=== PATIENT | male | born 1955 | race Caucasian/White ===

== ENCOUNTER 2016-12-08 08:40 | Inpatient (IN) ==
[2016-12-08] MEDS ORDERED: NS 1,000 ML IV ONE (08:53)
[2016-12-08] MEDS ORDERED: ZOFRAN IV ONE (08:53)
[2016-12-08 09:06] LABS: MANUAL DIFF NEEDED? NO
[2016-12-08 09:16] LABS: BASO% 0.5 % (0.0-0.8); EOS# 0.19 X1000 (0.0-0.7); EOS% 1.7 % (0.0-10.0); HEMATOCRIT 26.9 % (42.0-52.0); HEMOGLOBIN 8.6 g/dL (14.0-18.0); LYMPH# 2.63 X1000 (1.2-3.4); LYMPH% 23.8 % (20.5-51.1); MCH 27.2 PG (27-31); MCV 85.1 FL (81-99); MONO# 0.97 X1000 (0.11-0.59); MONO% 8.8 % (1.7-9.3); MPV 10.5 FL (7.4-10.4); NEUT% 65.2 % (42.2-75.2); PLT 268 X1000 (130-400); RBC 3.16 XMIL (4.7-6.1)
[2016-12-08] MEDS ORDERED: PROTONIX 80 MG in NS 80 ML IV ONE (09:42)
--- NOTE | 2016-12-08 09:44 | PROVIDER DOCUMENTATION ---
This chart was entered by Samir Abreu Scribe, acting as scribe for Vlad Joseph MD. HPI-Abdominal Pain/GI Problem - General Chief Complaint: Vomiting Blood Stated Complaint: VOMITING BLOOD Time Seen by Provider: 12/08/16 08:53 Source: patient, EMS Allergies/Adverse Reactions: Patient Allergies Allergy/AdvReac Type Severity Reaction Status Date / Time wheat Allergy Unknown Verified 12/08/16 09:01 Home Medications: Home Medication List Medication Instructions Recorded Confirmed Last Taken Type Colchicine 0.6 mg PO PRN PRN 03/08/13 12/08/16 03/06/13 History Metoprolol Succinate E.r. [Toprol 50 mg PO DAILY 03/08/13 12/08/16 12/07/16 History Xl] Nitroglycerin [Nitrostat] 0.4 mg SL DIRECTED PRN 03/08/13 12/08/16 03/08/13 00:30 History Aspirin 81 mg PO DAILY 04/16/13 12/08/16 12/07/16 08:00 History Cholecalciferol (Vitamin D3) 1,000 unit PO DAILY 10/27/16 12/08/16 12/07/16 History [D-2000] Febuxostat [Uloric] 80 mg PO DAILY 10/27/16 12/08/16 12/07/16 History [place]-3 Fatty Acids/Fish Oil [Fish 1 cap PO DAILY 10/27/16 12/08/16 12/07/16 History Oil 1,000 mg Capsule] Isosorbide Mononitrate [Isosorbide 60 mg PO DAILY 11/18/16 12/08/16 12/07/16 History Mononitrate ER] Ticagrelor [Brilinta] 90 mg PO BID 12/08/16 12/08/16 12/07/16 18:30 History - History of Present Illness-ABD Nature of Presenting Problems: Patient is a 61 y/o M that presents to the Er after vomiting blood this am. Patient denies any abdominal pain or diarrhea. Patient is on Brilinta due to having cardiac stents. No dizziness, shortness of breath, or fever. Abdominal Pain Onset Location: reports: generalized abdomen Quality of Pain: reports: aching, cramping Severity in ED: reports: moderate Onset/Duration: reports: abrupt, this morning Timing: reports: improving Activities at Onset: reports: none Modifying Factors: improves with: nothing Associated Symptoms: reports: nausea, vomiting. denies: back/neck pain, chest pain, diarrhea, dizziness, fever/chills, genitourinary problems, muscle aches, shortness of breath, weakness Emesis Description: reports: red blood Similar Symptoms Previously?: No Recently seen or treated by another doctor?: No Review of Systems - Adult - REVIEW OF SYSTEMS - ADULT Constitutional: denies: fever Eyes: reports: no symptoms reported Ears, Nose, Mouth & Throat: reports: no symptoms reported Cardiovascular: denies: chest pain, orthopnea, palpitations, syncope Respiratory: denies: cough, shortness of breath, wheezing Gastrointestinal: reports: hematemesis, nausea, vomiting. denies: diarrhea, rectal bleeding Genitourinary: denies: discharge, frequency, hematuria Musculoskeletal: reports: no symptoms reported Integumentary: reports: no symptoms reported Neurological: reports: no symptoms reported Psychiatric: reports: no symptoms reported Endocrine: reports: no symptoms reported Hematologic/Lymphatic: reports: no symptoms reported Allergic/Immunologic: reports: no symptoms reported All Other Systems: Reviewed and Negative Past History - Adult - PAST MEDICAL HISTORY-ADULT Review of Records: reports: Old Records Reviewed, Nursing Assessment Review, Medications Reviewed Cardiovascular: reports: CAD, HTN Genitourinary: reports: other (Renal Damage) - PRIOR SURGERIES/PROCEDURES Surgical/Procedure History: reports: cardiac stent, other (lithotripsy) - IMMUNIZATION STATUS Childhood Immunizations: See Nurse Assessment Flu Vaccine: See Nurse Assessment - FAMILY HISTORY Family History: reviewed, not pertinent - SOCIAL HISTORY Smoking: non-smoker Alcohol Use Frequency: occasionally Living Situation: family Physical Exam-General - PHYSICAL EXAM-ADULT Initial Vital Signs Reviewed: Yes - CONSTITUTIONAL General Appearance: alert, no apparent distress, other (blood noted to facial hair) - EYES Eyes: PERRL/EOMI, pink conjunctivae - HEAD, EARS, NOSE, MOUTH & THROAT HENMT: normocephalic/atraumatic, moist mucous membranes, normal ENT inspection - NECK Neck: full range of motion, normal inspection - RESPIRATORY Respiratory: lungs clear, normal breath sounds, no respiratory distress, no accessory muscle use - CARDIOVASCULAR Cardiovascular: regular rate, rhythm, no edema, no murmur. 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, no motor/sensory deficits - PSYCHIATRIC Psych/Mental Status: normal mood/affect, normal thought content, normal thought process, oriented x 3 Progress - PLAN OF CARE/RESULTS Progress/Plan/Lab Results: Vital Signs - 8 hr 12/08/16 08:59 Temperature 98 F Pulse Rate 63 Respiratory Rate 11 L Blood Pressure 93/52 O2 Sat by Pulse Oximetry 99 Orders Category Date Time Status Saline Loc DIRECTED Care 12/08/16 08:54 Active NPO Diet 12/08/16 08:54 Active AMYLASE [CHEM] Stat Lab 12/08/16 08:54 Received CBC WITH ELECTRONIC DIFF [HEME] Stat Lab 12/08/16 08:54 Results COMPREHENSIVE METABOLIC PANEL [CHEM] Stat Lab 12/08/16 08:54 Received LIPASE [CHEM] Stat Lab 12/08/16 08:54 Received Stool [OCCULT BLOOD SCREENING] [STOOL] Stat Lab 12/08/16 08:54 Uncollected URINALYSIS W/POSS RFLX CULT-1 [URINALYSIS] Stat Lab 12/08/16 08:54 Uncollected 0.9% Sodium Chloride Inj [Ns] 1,000 ml Med 12/08/16 08:53 Active IV 999 mls/hr Ondansetron [Zofran] Med 12/08/16 08:53 Discontinued 4 mg IV NOW ONE Result Diagrams: 12/08/16 08:54 12/08/16 08:54 - EKG 1 Time of EKG reading by physician:: 10:52 EKG Read and Signed by:: Vlad Joseph EKG Interpretation (*Must complete 3 of following elements*): Abnormal Rate: 56 Rhythm: Sinus Bradycardia [place]: left AK Interval: normal ST Wave: non-specific ST changes - CONSULTS/PCP/HOSPITALIST Notification #1 *Consult/PCP/Hospitalist*: nutrition representative for GI Time Discussed: 09:48 Reason/Comments: will consult, protonix drip Consult Disposition: other #2 Consult: Darrian ( with hospitalist) Time Discussed: 09:54 Reason/Comments: accepted patient Consult Disposition: Admit Departure - Departure Date of Disposition Decision: 12/08/16 Time of Disposition Decision: 09:54 DIAGNOSIS: Vomiting blood Disposition: ADMITTED INPATIENT 09 Certified Medical Emergency: Emergent Condition: Stable - Critical Care Note This patient required my direct & personal management of CC.: Yes Total Time (mins): 35 Critical Care Statement: This patient required my direct personal management to treat or rule out processes, the absence of which, could potentiallly result in sudden, clinically significant life or limb threatening deterioration. This chart was documented by the indicated scribe, (Samir Abreu, Scribe) and accurately reflects the services I performed and decisions made by me, Vlad Joseph MD, as attested by the provider's signature.
[2016-12-08] MEDS ORDERED: PROTONIX 80 MG in NS 80 ML IV SCH (09:45)
[2016-12-08 09:46] LABS: ALBUMIN 3.3 g/dL (3.5-5.0); CALCIUM 8.9 mg/dL (8.8-10.2); TOTAL BILIRUBIN 0.45 mg/dL (0.20-1.00); TOTAL PROTEIN 6.2 g/dL (6.3-8.3)
[2016-12-08 10:23] LABS: RETIC% 1.61 % (0.8-2.1); RETIC-HE 24.5 PG (28.2-36.6)
[2016-12-08] MEDS ORDERED: ZOFRAN IV PRN (10:31)
[2016-12-08 10:40] LABS: INR 1.02; PROTIME 10.7 Seconds (9.2-11.7)
--- NOTE | 2016-12-08 10:51 | Diag Imaging Result Doc PS360 ---
CHEST-1 VIEW - 12/08/2016 INDICATION: hematemesis TECHNIQUE: COMPARISON: 04/16/2013 FINDINGS: The lungs are normally expanded and clear. Heart size and mediastinal contours are normal. No pneumothorax or pleural effusion. IMPRESSION: Negative exam. Electronically signed by Kiko Gaytan 12/08/2016 10:48 AM
[2016-12-08 11:03] LABS: IRON SATURATION 11 %; TIBC 285 ug/dL; TOTAL IRON 31 ug/dL (53-167); UNBOUND IRON 254 ug/dL (112-346)
--- NOTE | 2016-12-08 11:28 | Diag Imaging Result Doc PS360 ---
ABDOMEN FLAT/UPRIGHT - 12/08/2016 INDICATION: hematemesis TECHNIQUE: Two views COMPARISON: None FINDINGS: There is a nonobstructive bowel gas pattern. No free air or abnormal calcifications. IMPRESSION: No acute disease. Electronically signed by Kiko Gaytan 12/08/2016 11:25 AM
[2016-12-08] MEDS: NS 1,000 ML IV SCH ×2 (12:05→23:39)
[2016-12-08 12:21] LABS: URINE CULTURE NEEDED? NO; URINE MICRO REVIEW NEEDED? NO; URINE SOURCE CLEAN CATCH
[2016-12-08 12:45] LABS: BILIRUBIN URINE NEGATIVE (NEGATIVE); BLOOD URINE NEGATIVE (NEGATIVE); COLOR YELLOW; GLUCOSE URINE NEGATIVE (NEGATIVE); LEUKOCYTES URINE NEGATIVE (NEGATIVE); NITRITE URINE NEGATIVE (NEGATIVE); PH URINE 5.5; PROTEIN URINE 30 mg/dL (NEGATIVE); SP GRAVITY URINE 1.012; TURBIDITY URINE CLEAR (CLEAR); UROBILINOGEN URINE NORMAL (NORMAL)
--- NOTE | 2016-12-08 12:46 | HISTORY AND PHYSICAL ---
CHIEF COMPLAINT: Hematemesis. HISTORY OF PRESENT ILLNESS: Mr. Zuluaga is a 61-year-old male with a history of coronary artery disease status post myocardial infarction and coronary stenting in August of this year, requiring dual anti-platelet therapy, CKD stage 3 to 4, hypertension, and hyperlipidemia, who presents with acute onset of hematemesis that started this morning. The patient reports that 2 or 3 days ago, he started having some left upper quadrant discomfort, nothing really serious, maybe some cramping with movement, and this eventually subsided. This morning, he started having nausea and threw up copious amounts of bright red blood. He sat back down on his bed, became a little more dizzy, and threw up blood again. He came to the hospital for evaluation. He was noted to have a hemoglobin and hematocrit of 8.6 and 26.9. His creatinine was 2.6. He denies any chest pain or shortness of breath. No recent lower extremity edema or orthopnea. He takes duel antiplatelet therapy every day, but he denies any other NSAID use. He denies alcohol or tobacco use. He is currently receiving Protonix bolus and drip. He has been typed and crossed, and we are going to admit him for further treatment and evaluation. PAST MEDICAL HISTORY: 1. CAD, status post TN and stenting in August 2016. 2. 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 Mena in [place]. 3. Hypertension. 4. Hyperlipidemia. 5. Gout. PAST SURGICAL HISTORY: He has had coronary stenting and lithotripsy. SOCIAL HISTORY: Patient quit smoking 36 years ago. He does not drink, use illicit substances, or use tobacco products. His and daughter are at the bedside. FAMILY HISTORY: Mother from a stroke. Father still alive at 95 years old, without any medical problems. REVIEW OF SYSTEMS: Fourteen-point review of systems obtained and found to be negative with the exception of the HPI. ALLERGIES: Wheat. HOME MEDICATIONS: Aspirin 81 mg daily. Brilinta 90 mg b.i.d. Vitamin D3, 1000 units p.o. daily. Colchicine 0.6 mg as needed. Uloric 80 mg daily. Isosorbide mononitrate 60 mg daily. Toprol-XL 50 mg daily. Nitrostat 0.4 mg sublingual as needed for chest pain. Fish oil 1 daily. PHYSICAL EXAMINATION: VITAL SIGNS: Blood pressure is 126/56, heart rate 58, respiratory rate 21, O2 saturation 100% on room air, and temperature is 98 degrees. GENERAL: This is a well-developed, well-nourished, male, lying in hospital bed in no acute distress. NEUROLOGIC: He is awake, alert, and oriented. He follows commands without focal deficits. HEENT: Head is atraumatic and normocephalic. His pupils are equal, round, and reactive to light. Conjunctivae and oral mucosa are pale and dry. Oropharynx is clear. Trachea is midline. NECK: Supple. No JVD. CHEST: Clear to auscultation bilaterally. CARDIOVASCULAR: Regular rate and rhythm. S1 and S2 noted. GASTROINTESTINAL: Soft, nondistended, nontender. Bowel sounds are positive. EXTREMITIES: Without edema, clubbing, or cyanosis. Pulses are palpable bilaterally. DIAGNOSTIC DATA: Chest x-ray is negative. WBC 11.05, hemoglobin 8.6, hematocrit 26.9, platelet count 268,000. INR 1.02. Sodium 142, potassium 5, chloride 108, CO2 of 16, anion gap 18, BUN 23, creatinine 2.6, glucose 197, calcium 8.9. LFTs within normal limits. Albumin 3.3. Lipase 57. ASSESSMENT AND PLAN: 1. Acute upper gastrointestinal bleed: Highest on the differential would be bleeding peptic or duodenal ulcer. The patient has been put on Protonix drip and IV fluids. Dr. Ashby has already been consulted with Gastroenterology. We are also going to consult Cardiology. Given the recent coronary stent and the fact that he is on dual anti-platelet therapy, will need some recommendations on if and when he can discontinue his antiplatelets. 2. Acute blood loss anemia secondary to #1: We have ordered iron studies, and will type and cross the patient, and transfuse if necessary. 3. History of recent myocardial infarction with coronary artery stenting: The patient denies any chest pain or shortness of breath. We are going to check an EKG and get records from [facility], where he has his stent, and consult Cardiology. We will hold his medications for now and defer this to Cardiology and Gastroenterology. 4. Chronic kidney disease stage 3 to 4: Creatinine is overall stable. He is a bit acidotic with hyperchloremia and a mildly elevated anion gap. This appears to be secondary to volume contraction and renal failure. We will monitor closely. 5. Hyperglycemia: Check a hemoglobin A1c and treat accordingly. 6. Deep vein thrombosis prophylaxis with SCDs and TEDs, given his gastrointestinal bleeding. Further recommendations to follow. Dictated by LEONA Walter for Gay Drummond MD cc: LEONA Walter MD The patient was seen and examined by me. I agree with the assessment and plan as dictated. [facility]
[2016-12-08 13:01] LABS: UR EPITHELIAL CELLS <10 /HPF (<10); URINE BACTERIA NEGATIVE /HPF; URINE RBC <10 /HPF (<10); URINE WBC <10 /HPF (<10)
--- NOTE | 2016-12-08 13:03 | EKG Report ---
Test Performed on : 12/08/2016 10:52:31 AM Test Reason : hematemesis, recent stent Blood Pressure : / mmHG Vent. Rate : 056 BPM Atrial Rate : 056 BPM P-R Int : 144 ms QRS Dur : 082 ms QT Int : 466 ms P-R-T Axes : 080 -30 092 degrees QTc Int : 449 ms Sinus bradycardia. Left axis deviation Septal infarct (cited on or before 08-MAR-2013) T wave abnormality, consider anterolateral ischemia Abnormal ECG When compared with ECG of 16-APR-2013 20:52, Questionable change in initial forces of Septal leads T wave inversion no longer evident in Lateral leads Confirmed by Billy BENOIT, MAdore Guardado ([id number]) on 12/21/2016 1:39:28 PM
[2016-12-08 13:34] LABS: HEMOGLOBIN 8.3 g/dL (14.0-18.0)
--- NOTE | 2016-12-08 14:09 | CONSULTATION ---
DATE OF CONSULTATION: 12/08/2016 REASON FOR REFERRAL: Hematemesis. HISTORY OF PRESENT ILLNESS: This is a 61-year-old white male with a history of coronary artery disease status post myocardial infarction. He had a coronary artery stent placed in August of this year. He has been on Brilinta since then. The patient also reports having an MO in 2012 with a stent placement. At the time in 2012 he was on Effient. He was changed to Brilinta in August. He also reports kidney disease stage 3, followed by Dr. Mena in [place]. The patient reports onset of symptoms at 8 o'clock this morning. He had an episode of nausea with bright red blood per emesis. He had 3 other episodes prior to coming to the hospital. Since he has been admitted he has not had any further hematemesis. He reports 2 days ago he had some left- sided abdominal pain. No reported problems with reflux or heartburn. He does not take any medicine at home for reflux or heartburn. He did report noticing a black stool about a month ago. He reports occasional diarrhea when he takes gout medicines. Currently denies chest pain or shortness of breath. No reported ibuprofen or other NSAID use. He does take aspirin daily along with Brilinta. PAST MEDICAL HISTORY: 1. Coronary artery disease. 2. History of myocardial infarction. 3. History of recent stent placement in August. 4. Chronic kidney disease, followed by Dr. Mena in [place]. 5. Hypertension. 6. Hyperlipidemia. 7. Gout. 8. History of asthma. PAST SURGICAL HISTORY: Cardiac stent placement in August of 2016, cardiac stent placement in 2012, history of lithotripsy. ALLERGIES: Wheat, causing asthma. HOME MEDICATIONS: Brilinta 90 mg twice daily, fish oil 1 capful daily, Nitrostat 0.4 mg sublingual as needed, metoprolol 50 mg daily, isosorbide mononitrate 60 mg daily , Uloric 80 mg daily, colchicine 0.6 mg as needed, vitamin D 1000 units daily, aspirin 81 mg daily. SOCIAL HISTORY: He denies tobacco or alcohol use. He is and has 3 children. He is currently between jobs. 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 REVIEW OF SYSTEMS: HEENT: Noted some dizziness this morning with episodes of hematemesis. Cardiovascular: No reported chest pain. He has a history of cardiovascular disease, history of myocardial infarction, and stent placement in August. Pulmonary: No reported shortness of breath or cough. GI: Per HPI. : Reports history of chronic kidney disease, followed by Dr. Mena in [place]. Neurological: No history of stroke or seizures. PHYSICAL EXAMINATION: Vital Signs: Temperature 98.2 degrees, pulse 59, respirations 15, blood pressure 144/73. General: Patient is awake, alert, in no acute distress. HEENT: Normocephalic, atraumatic. Pupils equal, round, reactive to light. Conjunctivae pale. Skin : Pale. Respiratory: Lung sounds clear bilaterally. Cardiovascular: Regular rate and rhythm. Gastrointestinal: Abdomen is soft, nontender. Positive bowel sounds. Extremities: No lower extremity edema noted. Pedal pulses present bilaterally. DIAGNOSTIC RESULTS/LABORATORY: Hematology: White count 11.05, hemoglobin 8.6, hematocrit 26.9, MCV 85.1, platelets 268,000. Coagulation: Protime 10.7, INR 1.02. Chemistry: Sodium 142, potassium 5.0, chloride 108, CO2 16, BUN 53, creatinine 2.6, glucose 197, calcium 8.9, magnesium 1.7, iron 31, TIBC 285, percent saturation 11, ferritin 75, total bilirubin 0.45 , AST 17, ALT 15, alkaline phosphatase 88, amylase 63, lipase 57. Vitamin B12 254, folate 10.6. Abdominal x-ray showed no acute disease. ASSESSMENT: 1. Hematemesis. 2. Anemia. 3. History of recent myocardial infarction with coronary artery stenting in August of 2016. 4. Chronic anticoagulation therapy. 5. Chronic kidney disease. PLAN: Continue supportive care. Continue to monitor hemoglobin and hematocrit and monitor for active bleeding. Transfuse packed red blood cells if needed. He is unable to come off of [facility] due to his recent cardiovascular stent placement in August. Will proceed with a diagnostic EGD. Further plans to be made according to findings. I have discussed the procedure, along with benefits and risks with the patient and his family and they wish to proceed. I have discussed this case with Dr. Izquierdo. Further plans will be made by him according to EGD findings. Thank you for this consultation. Dictated by LEONA Lua for Rosalio Izquierdo MD cc: LEONA Ferreira MD [facility]
[2016-12-08] MEDS ORDERED: NS 500 ML ONE (14:53)
[2016-12-08] MEDS ORDERED: DIPRIVAN 1% ONE (15:27)
[2016-12-08] MEDS ORDERED: COLCRYS PO PRN (15:49)
--- NOTE | 2016-12-08 16:24 | OPERATIVE NOTE ---
PROCEDURE DATE: 12/08/2016 PROCEDURE: EGD. PREOPERATIVE DIAGNOSES: 1. Acute upper gastrointestinal bleed. 2. Anemia secondary to upper gastrointestinal bleed. POSTOPERATIVE DIAGNOSES: 1. Severe esophagitis distal esophagus. 2. Hiatal hernia. MEDICATION USED: MAC as per Anesthesia. SCOPE: Olymp[employer] GIF HQ-[id number]. HISTORY: This is a 61-year-old gentleman presented to the hospital with acute upper GI bleed and when he presented he was unstable. His systolic blood pressure was 90 only. Was stabilized and is in process of receiving blood. EGD was done for only diagnostic purposes and check if he needs any therapeutic measures required or not and also that will give us an idea about his future use of Brilinta or whether we can use that safely or not. DESCRIPTION OF PROCEDURE: Informed consent obtained from the patient. The procedure, risks, benefits, alternatives were explained in layman's terms. He understood. All his pertinent questions were answered. Patient was brought to the endoscopy unit and was premedicated as per Anesthesia. After adequate sedation, while he was lying in left lateral position the gastroscope was introduced into the posterior pharynx and advanced under direct vision into the esophagus. Esophagus in the upper and middle part was normal. Distal esophagus right at the GE junction which was noted about 38 cm from the incisor. Esophageal ulcers were seen. These ulcers had some dark spots adherent to it but no evidence of active bleeding or stigmata of recent bleed seen. The patient had evidence of LA grade D esophagitis. No varices noted. There was a 2 cm hiatal hernia noted at about 38 cm. The diaphragmatic hiatus was noted at about 40 cm from the incisor. Scope passed through the esophagus in the stomach and the stomach was examined both straight and retroflexed view which revealed no evidence of active bleeding, no stigmata recent bleed, no ulcer, AVM or masses were seen. Scope was passed through the normal pylorus into the duodenal bulb and then 2nd part duodenum both appeared to be normal. Scope was then withdrawn, patient tolerated procedure, no complications noted. Patient was then transferred to the recovery area in a stable condition. IMPRESSION: 1. Severe esophagitis LA grade D. 2. Hiatal hernia. RECOMMENDATION: I would continue on proton pump inhibitor. Resume his aspirin and in 24-48 hours we can restart him on Brilinta again. I would recommend to keep him on IV Protonix for today and resume his Protonix p.o. 40 mg p.o. b.i.d. tomorrow. Start him on full liquid diet and advance as tolerated, in the meantime check hemoglobin and hematocrit after transfusions done and en keep an eye on his hemoglobin and hematocrit transfuse if necessary. Note Dr. Ashby will be following the patient for me as I will not be available starting [facility]. cc: Rosalio Izquierdo MD
[2016-12-08] MEDS: PROTONIX 80 MG in NS 80 ML IV SCH (18:29)
--- NOTE | 2016-12-08 19:27 | CONSULTATION ---
DATE OF CONSULTATION: 12/08/2016 IMPRESSION: 1. Acute upper GI bleeding related to severe erosive esophagitis. 2. Atherosclerotic coronary disease. A) status post previous coronary angioplasty/stenting of mid left anterior descending coronary. B) acute anterior myocardial infarction on 09/03/2016 treated with emergent coronary angioplasty/ stenting of occluded mid left anterior descending coronary artery in proximal portion of previously placed stent. A drug-eluting stent was placed. This was performed by at [facility] in [place], [place]. Left ventricular ejection fraction reported to be 25%. Highest CPK measured after event was about 2800. Patient had pre-existing chronic kidney disease and developed transient acute renal failure following the procedure which then recovered. 3. Hypertension, longstanding. 4. Chronic kidney disease. 5. Gout. 6. Medical noncompliance in the past. Specifically, prior to his recent anterior myocardial infarction he had stopped taking aspirin and antihypertensive medications. 7. Some degree of hyperlipidemia. Patient has been intolerant of several statins as he relates they aggravate his gout. RECOMMENDATIONS: 1. Continue beta-tia metoprolol. Consideration might be given to switching to carvedilol but for now I would not make any changes. 2. Resume antiplatelet therapy as soon as possible given drug-eluting stent placed to the mid left anterior descending coronary within the last several months. Dr. Izquierdo's operative report and recommendations are noted. Aspirin has been resumed and Brilinta to be resumed in 24 hours. 3. Echocardiography to reassess left ventricular systolic function. 4. The patient is also noted to have 80-90% mid to distal right coronary artery stenosis during his procedure in August of this year. For now we will continue to manage this medically but consideration may be given to percutaneous intervention particularly if perfusion study demonstrates hemodynamic significance/flow limitation. HISTORY: This 61-year-old, white male with a past history of atherosclerotic coronary disease, previous angioplasty/stent to mid left anterior descending coronary in the past, recent anterior myocardial infarction in early August of this year treated with emergent angioplasty/stent to mid left anterior descending coronary with drug-eluting stent, ischemic cardiomyopathy, hypertension, chronic kidney disease with baseline creatinine around 2.7, tophaceous gout, and medical noncompliance was admitted today with acute upper GI bleeding. Cardiology was consulted to assist with his care. He had acute chest pain back on 09/03/2016 while in [place], [place]. He characterizes the discomfort as angina. He promptly went to the emergency room in [place], [place] at [facility]. He got there within an hour and was found to have acute anterior myocardial infarction. Emergency coronary angioplasty/stenting was performed on occluded mid left anterior descending coronary in the proximal portion of the previously placed stent. A drug-eluting stent was utilized. This was performed by . Patient's ejection fraction was estimated to be 25%. CPK yovanny to about 2800. However, a peak CPK was not reliably determined as only 2 CPK values were obtained. The patient's postoperative post-procedure course was complicated by acute renal failure which ultimately improved. He also had some transient atrial fibrillation and transient ventricular arrhythmias. The latter was only observed in the initial 48 hours. He was treated with amiodarone. He was also treated with hydralazine and isosorbide as well as metoprolol, aspirin and Brilinta. Crestor was also initiated. Since discharge he has not had any further chest discomfort. He has had no exertional dyspnea, no orthopnea. He did not continue amiodarone. He also felt like hydralazine aggravated his gout and made him feel bad, and he discontinued this. He also did not continue Crestor/rosuvastatin. It is noteworthy that prior to his recent anterior myocardial infarction he had discontinued his aspirin and antihypertensive medications. He has had no recurrence of cardiovascular symptoms. Last night he had some left upper abdominal discomfort that was vague. Today he started having queasiness and nausea followed by vomiting of dark bloody material. He was having obvious hematemesis and was brought to the hospital for evaluation. He has already had an upper GI endoscopy and transfusion. He has erosive esophagitis but no active bleeding was seen. His last dose of Brilinta was last night. Aspirin has already been resumed. PAST MEDICAL HISTORY: 1. Atherosclerotic coronary disease as outlined above. 2. Hypertension, longstanding. 3. Chronic kidney disease. 4. Tophaceous gout. 5. Medical noncompliance. 6. Gastroesophageal reflux by symptomatology in the past. 7. Hyperlipidemia. PAST SURGICAL HISTORY: Lithotripsy for nephrolithiasis. ALLERGIES: He is allergic or intolerant to wheat. MEDICATIONS PRIOR TO ADMISSION: As listed. SOCIAL HISTORY: Patient quit smoking over 30 years ago. He does not use alcohol. FAMILY HISTORY: Positive for coronary disease. REVIEW OF SYSTEMS: Pulmonary: Negative. Gastrointestinal: Noteworthy for gastroesophageal reflux and hematemesis as noted in history of present illness and past medical history. GI review of systems is otherwise negative. Constitutional: Negative. Remainder of review of systems: Negative/noncontributory with 14 total systems reviewed. PHYSICAL EXAMINATION: General: Reveals a middle-aged male in no distress. Vital Signs: As recorded are stable. HEENT Examination: Extraocular movements intact. Mucous membranes moist. Neck: Supple without jugular venous distention. There are no carotid bruits. Chest: Clear to auscultation. Cardiac Examination: Reveals a regular rate and rhythm without appreciable murmur or gallop. Abdomen: Soft and nontender. Extremities: Without edema. Neurologic Examination: Reveals him to be alert, fully oriented. Speech is fluent. He moves all 4 extremities equally well. Skin: Warm, dry. Psychiatric Examination: Reveals his mood to be appropriate. EKG: Demonstrates sinus bradycardia with left axis deviation, anteroseptal infarct of undetermined age and T-wave abnormality. Consider anterolateral ischemia. cc: Chucky Carroll MD
[2016-12-08 21:18] LABS: HEMATOCRIT 28.3 % (42.0-52.0); HEMOGLOBIN 9.3 g/dL (14.0-18.0)
[2016-12-09] MEDS: PROTONIX 80 MG in NS 80 ML IV SCH ×2 (03:28→14:40)
[2016-12-09 05:47] LABS: HEMATOCRIT 24.8 % (42.0-52.0); MCH 27.9 PG (27-31); MCHC 32.3 g/dL (33-37); MCV 86.4 FL (81-99); MPV 10.5 FL (7.4-10.4); RBC 2.87 XMIL (4.7-6.1)
[2016-12-09 06:16] LABS: CALCIUM 8.4 mg/dL (8.8-10.2); POTASSIUM 4.5 mmol/L (3.5-5.1)
[2016-12-09] MEDS: TOPROL XL PO SCH (08:31)
[2016-12-09] MEDS: ASPIRIN PO SCH (08:34)
[2016-12-09] MEDS: ULORIC PO SCH (08:34)
--- NOTE | 2016-12-09 13:25 | PROGRESS NOTE ---
DATE: 12/09/2016 SUBJECTIVE: The patient's heart rate has been running in the 40s. He denies having any abdominal pain. He has not had a bowel movement yet. OBJECTIVE: Vital Signs: Temperature 98.1 degrees, blood pressure 144/88, heart rate 48, respirations 16, and O2 saturation is 100% on room air. General: This is an this is a elderly male, lying in bed in no acute distress. Head: Normocephalic, atraumatic. Heart: S1 and S2 normal. Bradycardic. Lungs: Clear to auscultation bilaterally. Abdomen: Positive bowel sounds. Soft, nontender, nondistended. Extremities: No edema. No cyanosis. No calf tenderness. Neurologic: Patient is alert and oriented x3. LABORATORIES: White blood cell count 4.9, hemoglobin 8, hematocrit 24, and platelets 144,000. Sodium 143, potassium 4.5, chloride 113, CO2 of 19, BUN 46, creatinine 2.5, and glucose 88. ASSESSMENT AND PLAN: 1. Upper gastrointestinal bleed secondary to severe esophagitis. Continue on Protonix drip. Gastroenterology is following. 2. Coronary artery disease, status post recent stents. Management as per the cancer genetics assistant. 3. Anemia of acute blood loss. The patient's hemoglobin and hematocrit did drop overnight. The patient has not had a bowel movement yet. We will discontinue the IV fluids and repeat a hemoglobin and hematocrit later this afternoon. 4. Bradycardia. The patient is currently asymptomatic. Cardiology is following. 5. Deep vein thrombosis prophylaxis. Continue with SCDs. cc: Gay Drummond MD
--- NOTE | 2016-12-09 13:28 | PROGRESS NOTE ---
DATE: 12/09/2016 IMPRESSION: Patient continues without chest discomfort or dyspnea. He has not had any symptoms of further GI blood loss. OBJECTIVE: Vital Signs: Blood pressure 144/88, heart rate 50 and regular with ECG showing sinus bradycardia. Neck: There is no significant jugular venous distention. Chest: Clear to auscultation. Cardiac Exam: Reveals a regular rate and rhythm without appreciable murmur or gallop. There is no evidence of peripheral edema. LAB DATA: Includes hematocrit 24.8, BUN 46, creatinine 2.5. IMPRESSION: 1. Recent upper gastrointestinal bleed related to erosive esophagitis. 2. Atherosclerotic coronary disease. Patient is status post acute anterior myocardial infarction 09/03/2016 treated with emergent angioplasty/stenting of occluded mid left anterior descending utilizing drug-eluting stent. 3. Hypertension, longstanding. 4. Chronic kidney disease. 5. Medical noncompliance. 6. Tophaceous gout. 7. Hyperlipidemia. Patient relates intolerant to several statins which he relates aggravate his gout. RECOMMENDATIONS: 1. Continue aspirin 81 mg daily. 2. Resume Brilinta this evening as permitted by GI. 3. Followup echocardiography. cc: Chucky Carroll MD
[2016-12-09 14:28] LABS: HEMATOCRIT 27.4 % (42.0-52.0); HEMOGLOBIN 8.8 g/dL (14.0-18.0)
[2016-12-09] MEDS: BRILINTA PO SCH (21:25)
[2016-12-10] MEDS: PROTONIX 80 MG in NS 80 ML IV SCH (00:18)
[2016-12-10 06:32] LABS: MCH 27.9 PG (27-31); MCV 87.1 FL (81-99); MPV 10.4 FL (7.4-10.4); RBC 2.87 XMIL (4.7-6.1)
[2016-12-10 07:11] LABS: CALCIUM 8.4 mg/dL (8.8-10.2); POTASSIUM 4.9 mmol/L (3.5-5.1)
[2016-12-10] MEDS: TOPROL XL PO SCH (08:58)
[2016-12-10] MEDS: ULORIC PO SCH (08:58)
[2016-12-10] MEDS: ASPIRIN PO SCH (08:58)
[2016-12-10] MEDS: BRILINTA PO SCH (08:58)
[2016-12-10] MEDS: PROTONIX PO SCH ×2 (09:40→10:27)
[2016-12-10] MEDS: CARAFATE LIQUID PO SCH ×2 (10:28→11:55)
--- NOTE | 2016-12-10 13:21 | PROGRESS NOTE ---
DATE: 12/09/2016 SUBJECTIVE: Patient denies any active GI bleeding. He has not had a bowel movement yet since admission. His hemoglobin and hematocrit did drop overnight, awaiting repeat hemoglobin and hematocrit results. OBJECTIVE: Vital Signs: Temperature 98.1 degrees, pulse 48, respirations 16, blood pressure 144/88. General: Patient is awake, alert, no acute distress. HEENT: Normocephalic, atraumatic. Pupils equal, round, reactive to light. Sclerae nonicteric. Respiratory: Lung sounds clear. Abdomen: Soft. Positive bowel sounds. DIAGNOSTIC RESULTS/LABORATORY: On 12/09/2016 WBC 4.98, hemoglobin 8.8, hematocrit 27.4, MCV 86.4, platelet 144,000. Chemistry: Sodium 143, potassium 4.5, chloride 113, CO2 19, BUN 46, creatinine 2.5, glucose 88. ASSESSMENT: 1. Gastrointestinal bleed with EGD showing erosive esophagitis. 2. Atherosclerotic coronary disease with myocardial infarction in August of this year with stent placement. 3. Hypertension. 4. Bradycardia. PLAN: Continue to monitor hemoglobin and hematocrit. Monitor for any further active bleeding. Continue aspirin and his Brilinta will be started this evening. We will change PPI from IV to p.o. tomorrow. Will continue to follow. Dr. Ashby will be following for Dr. Izquierdo while he is out of town. Dictated by LEONA Lua for Rosalio Izquierdo MD cc: LEONA Ferreira MD
--- NOTE | 2016-12-10 14:01 | PROGRESS NOTE ---
DATE: 12/10/2016 SUBJECTIVE: Patient denies any significant complaints. He did have a bowel movement. He denied blood in the stool or black stools. He is tolerating his diet. No reported abdominal pain. No reported vomiting or hematemesis. OBJECTIVE: Vital Signs: Temperature 98.0 degrees, pulse 54, respirations 17, blood pressure 133/74. HEENT: Normocephalic, atraumatic. Pupils equal, round, reactive to light. Sclerae nonicteric. Cardiovascular: Regular rate and rhythm, bradycardia noted. Respiratory: Lung sounds clear bilaterally. Abdomen: Soft, nontender. Positive bowel sounds. DIAGNOSTIC RESULTS/LABORATORY: Hematology: White count 4.96, hemoglobin 8.0, hematocrit 25.0, MCV 87.1, platelet 155,000. Chemistry: Sodium 142, potassium 4.9, chloride 110 , CO2 21, BUN 40, creatinine 2.8, glucose 98. ASSESSMENT AND PLAN: 1. Gastrointestinal bleed. 2. Esophagogastroduodenoscopy findings showed severe esophagitis. 3. Anemia. His hemoglobin and hematocrit have dropped from yesterday. We will repeat a hemoglobin and hematocrit level at 2 p.m. today. 4. Coronary artery disease with history of stent placement in August. Following with Dr. Carroll while in the hospital. We will change PPI to p.o. b.i.d. We will add Carafate every 6 hours. Repeat hemoglobin and hematocrit at 2 p.m. Further plans will be made according to findings. I have discussed this case with Dr. Drummond. I have also discussed plans with Dr. Ashby, who will round on the patient this afternoon. She is covering for Dr. Izquierdo while he is out of town. Dictated by LEONA Lua for Rosalio Izquierdo MD cc: LEONA Ferreira MD [facility]
[2016-12-10 14:07] LABS: HEMATOCRIT 26.6 % (42.0-52.0); HEMOGLOBIN 8.7 g/dL (14.0-18.0)
[2016-12-10 14:41] VITALS: BP 179/96
--- NOTE | 2016-12-10 15:27 | PROGRESS NOTE ---
DATE: 12/10/2016 SUBJECTIVE: Patient continues without chest discomfort or dyspnea. He has had no symptoms of further GI blood loss. OBJECTIVE: Vital signs: Blood pressure 133/74, heart rate 54 and regular, oxygen saturation 100% on room air. Cardiac exam: Reveals a regular rate and rhythm without appreciable murmur or gallop. Chest: Clear to auscultation. There is no evidence of peripheral edema. DIAGNOSTIC STUDIES: Echocardiography indicates left ventricular ejection fraction of 60%. There is mild hypokinesis of mid anteroseptal region, but no other wall motion abnormalities. IMPRESSIONS: 1. Recent upper gastrointestinal bleed related to erosive esophagitis. 2. Atherosclerotic coronary disease. The patient is status post acute anterior myocardial infarction September 03, 2016, treated with emergent angioplasty/stenting of occluded mid left anterior descending coronary artery utilizing drug-eluting stent. The patient has a history of previous angioplasty/stenting of mid left anterior descending coronary artery in the past. Left ventricular ejection fraction in normal range. 3. Hypertension, longstanding. 4. Chronic kidney disease. 5. Medical noncompliance. 6. Tophaceous gout. 7. Hyperlipidemia. Patient relates intolerant to several statins which he relates aggravates his gout. RECOMMENDATIONS: 1. Continue dual anti-platelet therapy as tolerated. 2. Continue current medical regimen for coronary artery disease. 3. Following discharge, patient to follow up with his regular auto body mechanic Dr. Cristian Villafana in approximately 2 weeks. I will see further this admission on as-needed basis. cc: Chucky Carroll MD
--- NOTE | 2016-12-10 16:14 | ECHO REPORT ---
ORDER DATE: 12/09/2016 ECHOCARDIOGRAM: MEASUREMENTS: Left ventricular end-diastolic diameter 4.8, end systolic diameter 3.2, posterior wall thickness 1.2, left atrium 4.3, aortic root 3.7. SUMMARY: 1. Fair quality study. 2. Aortic, mitral, tricuspid and pulmonic valves are without structural abnormality with mild tricuspid regurgitation. The estimated systolic PA pressure by Doppler is 40-45 mmHg. The aortic root is normal in size. 3. Normal left ventricular chamber size with mild concentric left hypertrophy suggested. Estimated left ventricular ejection fraction is approximately 60%. There is mild hypokinesis of the mid anteroseptal region. No other wall motion procedure evident. Left atrium is mildly enlarged. Right atrium and right ventricle are normal size with normal right ventricular systolic function. 4. No pericardial effusion. 5. Appearance of inferior vena cava suggests normal central venous pressure. CONCLUSIONS: 1. Mild tricuspid regurgitation with mild pulmonary hypertension by Doppler. 2. Mild concentric left hypertrophy with estimated left ventricular ejection fraction 60%. 3. Mild hypokinesis of mid anteroseptal region. 4. Mild left atrial enlargement. cc: Chucky Carroll MD
--- NOTE | 2016-12-14 16:45 | DISCHARGE SUMMARY ---
ADMISSION DATE: 12/08/2016 DISCHARGE DATE: 12/10/2016 FINAL DISCHARGE DIAGNOSES: 1. Upper gastrointestinal bleed secondary to severe esophagitis. 2. Coronary artery disease status post recent coronary stents. 3. Anemia of acute blood loss. 4. Asymptomatic bradycardia. 5. Stage 4 chronic kidney disease. 6. Hypertension. CONSULTATIONS REQUESTED DURING THIS HOSPITAL STAY: 1. Cardiology consultation with Chucky Carroll MD. 2. GI consultation with Rosalio Izquierdo MD . PROCEDURES PERFORMED DURING THIS HOSPITAL STAY: EGD performed on 11/08/2016 which revealed severe esophagitis and a hiatal hernia. HOSPITAL COURSE: Mr. Zuluaga is a 61-year-old male with a history of stage 4 chronic kidney disease and coronary artery disease with a recent stent who presented to the ER with hematemesis. The patient was admitted to the hospitalist service and admitted to the ICU on a Protonix drip. GI was immediately consulted as well as Cardiology given the patient's recent cardiac stents. The patient's Brilinta was held and the patient was taken for endoscopy on 12/08/2016 at which time severe esophagitis was seen on the endoscopy, but no active bleeding. The patient remained on the Protonix drip for several more days and eventually the Brilinta was restarted by the mine captain. The patient was noted to have asymptomatic bradycardia, so his Toprol was held during the hospital stay. The patient's hemoglobin and hematocrit did improve over the course of the hospitalization and remained stable following the endoscopy. The patient was started on Carafate as well as a proton pump inhibitor that he would need to take twice a day. The patient was ultimately cleared for discharge home on 12/10/2016. DISCHARGE MEDICATIONS: 1. Protonix 40 mg p.o. twice a day. 2. Carafate 1 g p.o. every 6 hours for 6 weeks. 3. Toprol-XL 50 mg p.o. daily. 4. Colchicine 0.6 mg p.r.n. for gout. 5. Nitrostat 0.4 mg sublingual q.5 minutes x3 p.r.n. for chest pain. 6. Aspirin 81 mg p.o. daily. 7. Fish oil 1000 mg p.o. daily. 8. Uloric 80 mg p.o. daily. 9. Vitamin D3 1000 units oral daily. 10. Brilinta 90 mg p.o. twice a day. 11. Isosorbide mononitrate 60 mg p.o. daily. DISCHARGE DIET: Low cholesterol, low sodium diet. ACTIVITY: As tolerated. FOLLOWUP INSTRUCTIONS: The patient will need to follow up with Dr. Izquierdo in 4 weeks. The patient will need to follow up with Dr. Baires in 2 weeks. cc: MD Chad Mike,
== END 2016-12-10 15:30 | disposition home or self-care (01) ==
LOC: SUPCPDRO → ED 08:40 → ICU 08:41 → 4N 12-09 17:09
PROVIDERS: ATTEND Internal Medicine

== ENCOUNTER 2019-04-23 11:25 | Inpatient (IN) ==
[2019-04-23 12:10] LABS: BASO# 0.02 X1000 (0.0-0.2); BASO% 0.1 % (0.0-0.8); EOS# 0.04 X1000 (0.0-0.7); EOS% 0.2 % (0.0-10.0); HEMATOCRIT 43.3 % (42.0-52.0); HEMOGLOBIN 14.4 g/dL (14.0-18.0); IMM GRAN# 0.06 X1000 (0.0-0.04); IMM GRAN% 0.3 % (0.0-0.5); LYMPH% 6.3 % (20.5-51.1); MCHC 33.3 g/dL (33-37); MCV 84.2 FL (81-99); MONO# 1.09 X1000 (0.11-0.59); MONO% 5.7 % (1.7-9.3); MPV 10.6 FL (7.4-10.4); NEUT# 16.64 X1000 (1.4-6.5); NEUT% 87.4 % (42.2-75.2); PLT 178 X1000 (130-400); RBC 5.14 XMIL (4.7-6.1); RDW 13.3 % (11.5-14.5); WBC 19.05 X1000 (4.8-10.8)
[2019-04-23 12:21] LABS: URINE SOURCE CLEAN CATCH
[2019-04-23 12:37] LABS: BILIRUBIN URINE NEGATIVE (NEGATIVE); BLOOD URINE SMALL (NEGATIVE); COLOR YELLOW; GLUCOSE URINE TRACE mg/dL (NEGATIVE); KETONE URINE 20 mg/dL (NEGATIVE); LEUKOCYTES URINE NEGATIVE (NEGATIVE); NITRITE URINE NEGATIVE (NEGATIVE); PH URINE 6.5; PROTEIN URINE 600 mg/dL (NEGATIVE); SP GRAVITY URINE 1.016; TURBIDITY URINE CLEAR (CLEAR); UROBILINOGEN URINE NORMAL (NORMAL)
[2019-04-23 12:39] LABS: UR EPITHELIAL CELLS <10 /HPF (<10); URINE BACTERIA NEGATIVE /HPF; URINE RBC <10 /HPF (<10); URINE WBC <10 /HPF (<10)
[2019-04-23 12:51] LABS: LYMPHS 10 % (21-51); MONO 5 % (1-9); SEGS 84 % (42-75)
[2019-04-23 13:26] LABS: ALB/GLOB RATIO 1.4; ALBUMIN 3.8 g/dL (3.5-5.0); CALCIUM 9.1 mg/dL (8.8-10.2); CREATININE 2.7 mg/dL (0.7-1.2); POTASSIUM 4.6 mmol/L (3.5-5.1); TOTAL BILIRUBIN 0.97 mg/dL (0.20-1.00); TOTAL PROTEIN 6.5 g/dL (6.3-8.3)
[2019-04-23] MEDS ORDERED: NS 1,000 ML IV ONE (14:52)
[2019-04-23] MEDS ORDERED: MORPHINE IV ONE (14:52)
[2019-04-23] MEDS ORDERED: ZOFRAN IV ONE (15:30)
--- NOTE | 2019-04-23 15:47 | Diag Imaging Result Doc PS360 ---
CT ABDOMEN/PELVIS W/O CONTRAST - 04/23/2019 INDICATION: CKD4 WITH EPI PAIN FOR 1 WEEK COMPARISON: 04/21/2019 FINDINGS: The lung bases are clear and the heart size is normal. There is worsening inflammatory edema around the duodenum and pancreatic head. There is duodenal wall thickening here as well. No drainable fluid collections. No peritoneal free air. Stable fat-containing ventral hernia above the umbilicus. There is mild constipation. Stable mild wall thickening of the urinary bladder. Stable significant diverticulosis of the colon. No radiodense renal stones. No hydronephrosis or hydroureter. IMPRESSION: 1. Worsening inflammation around the duodenum and pancreatic head. No drainable fluid collections. This is highly concerning for pancreatitis/duodenitis. 2. Other nonspecific findings are stable from prior. This exam was performed using automated exposure control, adjustment of mA or kV according to patient size, and/or use of iterative reconstruction technique Electronically signed by Kiko Gaytan 04/23/2019 3:45 PM
[2019-04-23 17:01] LABS: UR AMPHETAMINES QUAL NONE DETECTED (NONE DETECT); UR BARBITUATES QUAL NONE DETECTED (NONE DETECT); UR BENZODIAZEPIN QUAL NONE DETECTED (NONE DETECT); UR CANNABINOIDS QUAL NONE DETECTED (NONE DETECT); UR COCAINE QUAL NONE DETECTED (NONE DETECT); UR METHADONE QUAL NONE DETECTED (NONE DETECT); UR OPIATES QUAL NONE DETECTED (NONE DETECT); UR OXYCODONE QUAL NONE DETECTED (NONE DETECT); UR PCP QUAL NONE DETECTED (NONE DETECT)
[2019-04-23] MEDS ORDERED: ZOFRAN IV PRN (17:55)
[2019-04-23] MEDS ORDERED: MORPHINE IV PRN (17:58)
[2019-04-23] MEDS ORDERED: SODIUM CHLORIDE 0.9% INJ SCH (18:00)
[2019-04-23] MEDS ORDERED: APRESOLINE IV PRN (18:00)
--- NOTE | 2019-04-23 20:51 | HISTORY AND PHYSICAL ---
CHIEF COMPLAINT: Right upper quadrant pain and nausea. HPI: This is a 64-year-old gentleman with a history of CAD status post stents, gastroesophageal reflux disease, hyperlipidemia, hypertension, stage 4 kidney disease and pancreatitis diagnosed 04/21/2019. He presents to the emergency room complaining of ongoing nausea and right upper quadrant and epigastric pain. The patient was evaluated in the emergency room on 04/21/2019. At that time he was found to have a lipase of 1270 with an amylase of [address] scan that revealed duodenitis, consider an underlying duodenal ulcer with no sign of perforation and abdominal ultrasound that revealed peripancreatic fluid. He refused admission at this time. He left against medical advice. He states he attempted to eat some soup Tuesday morning said it tasted like cardboard and made him nauseous. He presented to [facility] Emergency Room on Sunday 04/22. He states that they did a workup and he was told that his amylase and lipase were within normal limits and he needed to follow up with Gastroenterology on an outpatient basis. He attempted to call Gastroenterology today, they were unable to see him today therefore, he saw the primary care provider that was litigation paralegal for his PCP who recommended that the patient return to the emergency room. At the time of my exam the patient has had morphine. He is drowsy. He states that his pain is down to 1 to 2/10. He is tender to palpation at his epigastric right upper quadrant area. PAST MEDICAL HISTORY: 1. Chronic kidney disease stage 4. 2. Hypertension. 3. Hyperlipidemia. 4. Gastroesophageal reflux disease. 5. CAD status post OR and stents. 6. Kidney stones. 7. Gout. PAST SURGICAL HISTORY: Lithotripsy and cardiac stents. SOCIAL HISTORY: He denies alcohol, tobacco, or illicit drug use. ALLERGIES: Wheat with unknown reaction. HOME MEDICATIONS: A list will be obtained by the nursing staff and once verified will review and restart as appropriate. REVIEW OF SYSTEMS: Discussed with the patient with pertinent positives stated in the HPI. He denied any syncope or dizziness, chest pain, palpitations, any fevers or chills, recent weight loss or weight gain, any night sweats, any vomiting, diarrhea, constipation, black or bloody vomitus or stools, any hematuria, dysuria, frequency, urgency. PHYSICAL EXAMINATION: GENERAL: This is a 64-year-old gentleman who is lying on the stretcher in the emergency room, sedated and cooperative in no distress. VITAL SIGNS: Blood pressure is 178/92 with a heart rate of 76, respirations are 18, temperature is 98.8 degrees with room air saturations 96-98%. HEENT: Pupils equal, round, react to light. EOMs are intact. Sclerae are anicteric. Head is normocephalic, atraumatic. Mucous membranes are moist. NECK: Supple with trachea midline. CARDIOVASCULAR: Regular rate and rhythm. S1, S2 appreciated. He has no lower extremity edema. Calves are nontender bilateral with peripheral pulses palpable x4 extremities. PULMONARY: Breath sounds are clear with no increased work of breathing noted. Chest rises and falls symmetric respiration. Chest wall is nontender to palpation. GASTROINTESTINAL: Abdomen soft, nondistended, tender to palpation epigastric right upper quadrant with bowel sounds in all 4 quadrants. NEUROLOGIC: He is sleepy after morphine but oriented x3. SKIN: Warm and dry. LABS: WBC is 19 with hemoglobin 14.4, hematocrit 43.3 and platelets 178,000. Sodium 142, potassium 4.6, BUN 28, creatinine 2.7 with a glucose of 123. Urinalysis is essentially negative. Urine drug screen reveals none detected. CT of the abdomen and pelvis reveals worsening inflammation around the duodenum and pancreatic head. No drainable fluid collections, highly concerning for pancreatitis, duodenitis, stable significant diverticulosis of the colon. ASSESSMENT AND PLAN: 1. Pancreatitis. 2. Duodenitis. 3. Leukocytosis secondary to #1 and 2. 4. Chronic kidney disease with a baseline creatinine of 2.3 to 2.4. 5. Hypertension. 6. History of gout. PLAN: The patient will be admitted to the medical floor. placed on telemetry. n.p.o. at present. IV hydralazine prn for blood pressure. Flagyl 500 mg q.6 hours with Rocephin. morphine for pain. IV hydration. renal profile and a CBC, amylase and lipase in the morning. identify his home medications and continue these as appropriate. For DVT prophylaxis will use SCDs. will give no anticoagulation as he does have a history of a GI bleed GI prophylaxis Protonix IV q.12 hours. Plan was discussed with Dr. Flores. Further treatments pending hospital course. Dictated by LEONA Garcia for Kirby Flores MD cc: LEONA Garcia MD I agree with most components of history, physical, assessment and plan. A separate addendum has been dictated. [id number]
--- NOTE | 2019-04-23 23:07 | HISTORY AND PHYSICAL ---
ADDENDUM: I agree with most components of history, physical, assessment, and plan. In brief, Mr. Zuluaga is 64 years old man with past medical history of coronary artery disease requiring stent in 2017, chronic kidney disease stage 4, bradycardia, essential hypertension, severe esophagitis leading to upper gastrointestinal bleed in 2017, who comes in with chief complaints of epigastric and right upper quadrant pain of about 3 days duration. Late morning, patient had started experiencing epigastric and right upper quadrant pain, which was constant, sharp pain associated with nausea and an episode of vomiting where he spit out clear liquid. His pain was constant and did not go away so he decided to come to the emergency room on Tuesday. Before he could be admitted, he had decided to go home; however, his abdominal pain did not get better, and he went to [facility] Emergency Room on Tuesday. At that time, supposedly, his amylase and lipase were normal, so he was asked to have outpatient GI followup, but he was not able to see a GI physician until 3 or 4 days later, so he decided to come back to the hospital again with complaints of persistent abdominal pain. In the emergency room, he is hemodynamically stable, but CT scan of the abdomen and pelvis suggests worsening in the inflammation around duodenum and pancreas so the hospitalist team was consulted for further management. At the time of my evaluation patient denies any vomiting though he is a little nauseous and is constantly having epigastric right upper quadrant abdominal pain, though he states that progressively he has been feeling better. He has not noticed any constipation or diarrhea; however, he has not been able to eat anything since last 3 days. Family is at bedside. VITALS: Temperature 98.6 degrees, pulse 74, respiratory rate 19, blood pressure 180/100. He is saturating 97% on room air. PHYSICAL EXAMINATION: GENERAL: He is not in any acute distress. HEENT: Oral cavity is moist. LUNGS: Air entry bilaterally equal. No wheeze, rhonchi, or crackles. CARDIOVASCULAR: S1, S2 normal. No murmur, rub, or gallop. ABDOMEN: Soft. Tenderness in epigastric/right upper quadrant region. Active bowel sounds. EXTREMITY: No lower extremity edema. NEUROLOGIC: He is alert and oriented x3. LABORATORY DATA: Suggestive of leukocytosis, which is worse. CKD stage 4, normalization of amylase and lipase. Urinalysis and urine toxicology is unremarkable. Microbiology is unremarkable. IMAGING: CT scan of the abdomen and pelvis suggests worsening inflammation around duodenum and pancreatic head without any drainable fluid collection concerning for pancreatitis, duodenitis. ASSESSMENT AND PLAN: 1. Suspected inflammation involving duodenum and pancreatic head with amylase more than 1000 and lipase more than 1000 on the labs drawn on 04/21/2019 concerning for acute duodenitis or pancreatitis. He denies alcohol use. Does not have known history of gallstones. A duodenal ulcer causing duodenitis or an inflammatory mass are likely possibilities. I will start him on intravenous ceftriaxone, metronidazole, intravenous proton pump inhibitors b.i.d. I will also start him on intravenous fluids and consult Gastroenterology for possible future need for endoscopy. 2. History of coronary artery disease with stents in 2017. Continue home meds including aspirin, Brilinta, amlodipine, beta blockers. 3. History of gout. I will continue his home febuxostat and colchicine. The patient denies active smoking, active alcohol use or use of any NSAID medication related to chronic kidney disease. 4. Chronic kidney disease stage 4, currently stable. I will follow up with [facility]. DISPOSITION: I will monitor patient inside the hospital as we await GI further recommendation. Plan of care discussed with him, his family at bedside. All of the questions have been answered. cc: MD TREVON Mccain
[2019-04-23] MEDS: FLAGYL PO SCH ×2 (23:20→23:56)
[2019-04-23] MEDS: NS 1,000 ML IV SCH (23:32)
[2019-04-23] MEDS: PROTONIX IV SCH (23:33)
[2019-04-23] MEDS: ROCEPHIN 1 GM in NS 50 ML IV SCH (23:33)
[2019-04-23] MEDS: NORVASC PO SCH (23:33)
[2019-04-23] MEDS: BRILINTA PO SCH (23:56)
[2019-04-23] MEDS: MORPHINE IV PRN (23:58)
[2019-04-24] MEDS: FLAGYL PO SCH ×4 (06:18→23:18)
[2019-04-24 06:45] LABS: HEMATOCRIT 39.6 % (42.0-52.0); HEMOGLOBIN 13.3 g/dL (14.0-18.0); MCH 28.5 PG (27-31); MCHC 33.6 g/dL (33-37); MCV 84.8 FL (81-99); MPV 10.3 FL (7.4-10.4); RBC 4.67 XMIL (4.7-6.1); WBC 14.85 X1000 (4.8-10.8)
[2019-04-24 07:06] LABS: CREATININE 2.5 mg/dL (0.7-1.2); PHOSPHORUS 3.1 mg/dL (2.7-4.5); POTASSIUM 4.2 mmol/L (3.5-5.1)
[2019-04-24] MEDS: BRILINTA PO SCH ×3 (07:36→21:21)
[2019-04-24] MEDS: TOPROL XL PO SCH ×2 (07:36→08:11)
[2019-04-24] MEDS: VITAMIN D PO SCH ×2 (07:36→08:11)
[2019-04-24] MEDS: ULORIC PO SCH ×2 (07:36→08:11)
[2019-04-24] MEDS: FISH OIL CONCENTRATE PO SCH ×2 (07:36→08:11)
[2019-04-24] MEDS: ASPIRIN PO SCH ×2 (07:36→08:11)
[2019-04-24] MEDS: IMDUR PO SCH ×2 (07:36→08:11)
[2019-04-24] MEDS: COLCRYS PO SCH (08:11)
--- NOTE | 2019-04-24 08:14 | Diag Imaging Result Doc PS360 ---
CHEST-1 VIEW - 04/24/2019 INDICATION: dyspnea COMPARISON: 04/21/2019 FINDINGS: The lungs are clear. Heart size is normal. No pneumothorax or pleural effusion. IMPRESSION: Negative exam. Electronically signed by Kiko Gaytan 04/24/2019 8:11 AM
[2019-04-24] MEDS: MORPHINE IV PRN (09:22)
[2019-04-24] MEDS: PROTONIX IV SCH ×2 (12:48→23:20)
[2019-04-24] MEDS: NS 1,000 ML IV SCH (12:52)
[2019-04-24] MEDS ORDERED: COLACE PO ONE (16:18)
[2019-04-24] MEDS: MIRALAX PO SCH (17:14)
[2019-04-24] MEDS: ROCEPHIN 1 GM in NS 50 ML IV SCH (17:15)
--- NOTE | 2019-04-24 19:08 | GASTROENTEROLOGY CONSULTATION ---
DATE: 04/24/2019 REASON FOR CONSULT: Pancreatitis and duodenitis. HISTORY OF PRESENT ILLNESS: Mr. Zuluaga is a 64-year-old male, with a past medical history of coronary artery disease, status post stent placement in 2017, GERD, hyperlipidemia, hypertension, stage 4 kidney disease, and pancreatitis diagnosed on 04/21/2019. He had presented to the emergency room with ongoing nausea and right upper quadrant and epigastric pain. The patient was evaluated in the emergency room on 04/21/2019, and his lipase was 1270 and amylase was 1068. A CT of the abdomen and pelvis on 04/21/2019 had shown wall thickening and surrounding inflammation involving proximal duodenum, indicating duodenitis. Abdominal ultrasound showed poorly visualized peripancreatic fluid, indefinite. No cholelithiasis. Primary duct dilation noted. The renal collecting system bilaterally more prominent in the right with mild increase in the renal echotexture. The patient did not want to be in the hospital, and so he left against medical advice. On Tuesday when he tried to eat something he felt nauseated. He came yesterday with abdominal pain, nausea, vomiting, and he said that his abdominal pain was 10/10 and described it as sharp pain around the right upper quadrant and the epigastric area. 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 His CT of the abdomen and pelvis on 04/23/2019 showed worsening inflammation around the duodenum and the pancreatic head. No drainable fluid collections. It is highly concerning for pancreatitis and duodenitis. PAST MEDICAL HISTORY: 1. Chronic kidney disease stage 4. 2. Hypertension. 3. Hyperlipidemia. 4. GERD. 5. Coronary artery disease, status post DC and stents. 6. Kidney stones. 7. Gout. PAST SURGICAL HISTORY: 1. Lithotripsy. 2. Cardiac stents. SOCIAL HISTORY: He used to drink alcohol and smoked tobacco in the past, and has denied any illicit drug use. ALLERGIES: He is allergic to wheat with no known reactions. MEDICATIONS: Currently, there is no list of the patient's home medications. FAMILY HISTORY: No significant GI malignancies. REVIEW OF SYSTEMS: As per HPI. Otherwise, 12 point review of systems is negative. PHYSICAL EXAMINATION: Vital Signs: Temperature 97.6 degrees, pulse is 55, respirations 18, blood pressure 157/83, oxygen saturation 95% on room air. General: He is alert, oriented x3, and in no acute distress. The patient was a little bit noncooperative when it came to answering questions. HEENT: Pale conjunctivae. No icterus. PERRL. Neck: Supple. Lungs: Clear to auscultation in the anterior velasquez. Cardiovascular: Patient is bradycardic. Abdomen: Soft, mildly distended. Tender in the epigastric area and the right upper quadrant. Active bowel sounds heard in all 4 quadrants. Neurologic: Alert and oriented x3, and nonfocal, and cranial nerves 2 through 12 grossly intact. LABORATORY: WBC 14.85, RBC 4.67, Hemoglobin 13.3, Hematocrit 39.6, Platelet count 174,000, Sodium 140, Potassium 4.2, Chloride 10.6, CO2 17, Anion Gap 17, BUN 28, Creatinine 2.5, Amylase 53 and Lipase 37. Urine analysis showed protein of 600 and small amount of blood. IMPRESSION AND PLAN: 1. Nausea/vomiting. 2. Abdominal pain. 3. Hypertension. 4. Coronary artery disease, s/p stent placement. 5. Pancreatitis. 6. Duodenitis. 7. Chronic kidney disease. PLAN: Mr. Zuluaga is 64 year old male presenting to the hospital with abdominal pain, nausea and vomiting with elevated lipase and amylase, GI has been consulted for Pancreatitis. Patient is currently on clear liquids, we will start him on a low fat diet tomorrow morning. We have also ordered labs for IgG4 and triglycerides. Patient is on antiemetic Zofran for his nausea and vomiting. He is on GI prophylaxis Protonix 40 mg IV BID. Patient is currently on antibiotics Flagyl and Rocephin, and is receiving IV fluids. His amylase and lipase today is 53 and 37. We will continue to monitor the patient and follow the plan of care per PCP. This plan was discussed with Dr. Penny. Thank you for your consult. Please call us for any further questions or concerns. Dictated by LEONA Butler for Dimas Penny MD Physician Attestation I have seen and examined the patient. I have discussed and reviewed the note by Alyson DELGADILLO and agree with findings and plan as documented. In brief, Mr. Charlie Zuluaga is a 64 year old man with HTN, HLD, CAD s/p stents, CKD, GERD with history of esophagitis who presented with acute pancreatitis from unknown etiology. Nondrinker. Remote smoker. No weight loss. CT shows duodenitis likely reactive in the setting of pancreatitis. No biliary or pancreatic duct dilation in CT. ALP mildly elevated, normal Tbili and transaminases. Notable leukocytosis, which is likely reactive in setting of pancreatitis. His pain is improving already and he is tolerating clear liquids. Will check TG and IgG4. Will plan outpatient MRCP in 4-6 weeks when inflammation subsides. No prior colonoscopy. Will plan outpatient EGD and colonoscopy. Can transition PPI to PO once daily. Continue supportive care with IVFs and pain control. MTDD
[2019-04-24] MEDS ORDERED: DULCOLAX PR SCH (21:00)
[2019-04-24] MEDS ORDERED: HEPARIN SUBQ SCH (21:00)
[2019-04-24] MEDS: COLACE PO SCH (21:21)
[2019-04-24] MEDS: NORVASC PO SCH (21:21)
--- NOTE | 2019-04-24 21:41 | PROGRESS NOTE ---
DATE: 04/24/2019 SUBJECTIVE: The patient is resting comfortably in bed. He was able to tolerate a clear liquid diet today without any difficulty. He complains of constipation. OBJECTIVE: Vital Signs: Temperature 98 degrees, blood pressure 160/92, heart rate 55, respirations 18, O2 saturation 96% on room air. General: This is an elderly male sitting up in bed in no acute distress. Heart: S1, S2 normal. Regular rate and rhythm. Lungs: Clear to auscultation bilaterally. Abdomen: Positive bowel sounds. Soft, nontender, nondistended. Extremities: No edema. No cyanosis. Neurologic: The patient is alert and oriented x4. LABS: White blood cell count 14, hemoglobin 13, hematocrit 39, platelets 173,000. Sodium 140, potassium 4.2, chloride 106, CO2 17, BUN 28, creatinine 2.5, glucose 105, albumin 3. ASSESSMENT AND PLAN: 1. Acute pancreatitis. The patient is slowly improving. He states that his abdominal pain has improved. The triglyceride panel is pending as well as an IgG assay. Gastroenterology is following. 2. Chronic kidney disease stage 4. Stable. 3. Hypertension. Continue on Lopressor and Imdur. 4. Leukocytosis. Slowly improving. So far, the blood cultures remain negative. 5. Constipation. We will start the patient on Colace and MiraLAX. 6. Coronary artery disease. Continue on the current cardiac medications. 7. Deep vein thrombosis prophylaxis. We will start the patient on heparin. cc: Gay Drummond MD
[2019-04-25] MEDS: NS 1,000 ML IV SCH (02:33)
[2019-04-25] MEDS: MORPHINE IV PRN (02:33)
[2019-04-25] MEDS: FLAGYL PO SCH ×2 (05:08→13:16)
[2019-04-25 07:23] LABS: HEMATOCRIT 36.8 % (42.0-52.0); HEMOGLOBIN 12.4 g/dL (14.0-18.0); MCH 28.9 PG (27-31); MCHC 33.7 g/dL (33-37); MCV 85.8 FL (81-99); RBC 4.29 XMIL (4.7-6.1); RDW 13.1 % (11.5-14.5); WBC 11.77 X1000 (4.8-10.8)
[2019-04-25 07:51] LABS: ALB/GLOB RATIO 0.9; ALBUMIN 2.9 g/dL (3.5-5.0); CALCIUM 8.8 mg/dL (8.8-10.2); CREATININE 2.7 mg/dL (0.7-1.2); POTASSIUM 4.4 mmol/L (3.5-5.1); TOTAL BILIRUBIN 0.63 mg/dL (0.20-1.00); TOTAL PROTEIN 6.2 g/dL (6.3-8.3)
[2019-04-25] MEDS: BRILINTA PO SCH (09:04)
[2019-04-25] MEDS: ULORIC PO SCH (09:04)
[2019-04-25] MEDS: FISH OIL CONCENTRATE PO SCH (09:04)
[2019-04-25] MEDS: COLACE PO SCH (09:04)
[2019-04-25] MEDS: COLCRYS PO SCH (09:04)
[2019-04-25] MEDS: VITAMIN D PO SCH (09:05)
[2019-04-25] MEDS: TOPROL XL PO SCH (09:05)
[2019-04-25] MEDS: ASPIRIN PO SCH (09:05)
[2019-04-25] MEDS: IMDUR PO SCH (09:05)
[2019-04-25] MEDS: MIRALAX PO SCH (09:05)
--- NOTE | 2019-04-25 11:32 | Diag Imaging Result Doc PS360 ---
FLAT/UPRIGHT ABD/1 VIEW CHEST - 04/25/2019 INDICATION: constipation/dyspnea TECHNIQUE: COMPARISON: 04/24/2019 FINDINGS: The chest is clear. There is a nonobstructive bowel gas pattern. No free air or abnormal calcifications. There is no constipation. IMPRESSION: Negative exam. Electronically signed by Kiko Gaytan 04/25/2019 11:30 AM
--- NOTE | 2019-04-25 11:41 | GASTROENTEROLOGY PROGRESS NOTE ---
DATE: 04/25/2019 SUBJECTIVE: Mr. Zuluaga is a 64-year-old male, sitting at the side of the bed. Family at the bedside. The patient has denied any nausea, vomiting, or abdominal pain, but he said that he does not feel like eating his breakfast. OBJECTIVE: Vital Signs: Temperature 98.3 degrees, pulse 63, respirations 20, blood pressure 181/92, oxygen saturation 97% on room air. The patient's weight is 178 pounds, BMI is 24.1 kg/m2. General: He is alert, oriented x3, and in no acute distress. HEENT: Pale conjunctivae. No icterus. SANTHOSH. Neck: Supple. Lungs: Clear to auscultation in the anterior velasquez. Cardiovascular: Regular rate and rhythm. Abdomen: Soft, nontender, nondistended. Active bowel sounds heard in all 4 quadrants. Extremities: No clubbing, no cyanosis, no edema. Pedal pulses 2+ present bilaterally. IMAGING AND LABORATORY DATA: WBC is 11.77, RBCs 4.29, hemoglobin 12.4, hematocrit 36.8, platelet count 161,000. Sodium 141, potassium 4.4, chloride 109, carbon dioxide 19, anion gap 13, BUN 25, creatinine 2.7, glucose 100, calcium 8.8. Total bilirubin is 0.63, AST 14, ALT 12, alkaline phosphatase 158, albumin 2.9. Triglycerides 87. Chest x-ray showed negative exam. IMPRESSION AND PLAN: Nausea and Vomiting Abdominal pain Hypertension CAD s/p stent replacement Pancreatitis Duodenitis CKD PLAN: Mr. Zuluaga is a 64-year-old male, GI is following for nausea, vomiting, and abdominal pain. The patient, on admission, had elevated lipase and amylase. His lipase and amylase yesterday were 53 and 37. His triglycerides are 87. The patient has denied any nausea, vomiting, or abdominal pain. We have started him on a low-fat diet Awaiting for the results of his IgG 4 assays. We will continue to monitor the patient, and follow the plan of care per PCP. This plan was discussed with Dr. Penny. Please call us for any further questions or concerns. Dictated by LEONA Butler for Dimas Penny MD Physician Attestation I have seen and examined the patient. I have discussed and reviewed the note by Alyson DELGADILLO and agree with findings and plan as documented. In brief, Mr. Charlie Zuluaga is a 64 year old man with HTN, HLD, CAD s/p stents, CKD, GERD with history of esophagitis who presented with acute pancreatitis from unknown etiology. Symptoms significantly improved. He is tolerating solids. Abdominal exam benign. TG WNL. IgG4 pending. CT showed duodenitis. Will plan outpatient EGD/colonoscopy and MRCP when inflammation resolves. Discharge on PPI once daily and low fat diet. Follow-up with Dr. Penny in 2-4 weeks. MTDD
[2019-04-25 12:06] VITALS: BP 140/84
[2019-04-25] MEDS: PROTONIX IV SCH (13:14)
[2019-04-25] MEDS ORDERED: MIRALAX PO SCH (21:00)
--- NOTE | 2019-04-30 14:31 | PROVIDER DOCUMENTATION ---
This chart was entered by Mirta Gonzalez Scribe, acting as scribe for Jeff Crawford MD. HPI-Abdominal Pain/GI Problem - General Chief Complaint: Abdominal Pain Stated Complaint: STOMACH PAIN Time Seen by Provider: 04/23/19 14:38 Source: patient Allergies/Adverse Reactions: Patient Allergies Allergy/AdvReac Type Severity Reaction Status Date / Time wheat Allergy Unknown Verified 04/23/19 14:34 Home Medications: Home Medication List Medication Instructions Recorded Confirmed Last Taken Type Metoprolol Succinate E.r. [Toprol 50 mg PO DAILY 03/08/13 04/23/19 04/20/19 History Xl] Nitroglycerin [Nitrostat] 0.4 mg SL DIRECTED PRN 03/08/13 04/23/19 04/20/19 History Aspirin 81 mg PO DAILY 04/16/13 04/23/19 04/20/19 History Cholecalciferol (Vitamin D3) 1,000 unit PO DAILY 10/27/16 04/23/19 04/20/19 History [D3-2000] Febuxostat [Uloric] 80 mg PO DAILY 10/27/16 04/23/19 04/20/19 History [place]-3 Fatty Acids/Fish Oil [Fish 1 cap PO DAILY 10/27/16 04/23/19 04/20/19 History Oil 1,000 mg Capsule] Isosorbide Mononitrate [Isosorbide 60 mg PO DAILY 11/18/16 04/23/19 04/20/19 History Mononitrate ER] Ticagrelor [Brilinta] 90 mg PO BID 12/08/16 04/23/19 04/20/19 History Amlodipine Besylate 1 tab PO QHS 04/21/19 04/23/19 04/20/19 History Colchicine [Colcrys] 1 tab PO DAILY 04/21/19 04/23/19 04/20/19 History Ubiquinol 1 - 2 tab PO DAILY 04/21/19 04/23/19 04/20/19 History Docusate Sodium [Colace] 100 mg PO BID #60 cap 04/25/19 Unknown Rx Polyethylene Glycol 3350 [Miralax] 17 gm PO BID #60 powder, packet 04/25/19 Unknown Rx - History of Present Illness-ABD Nature of Presenting Problems: Patient is a 64 year old male who presents with epigastric abdominal pain. States nausea and vomiting with abdominal pain. Reports was diagnosed with pancreatitis over the weekend and declined admission. Abdominal Pain Onset Location: reports: epigastric Pain Radiation: reports: no radiation Quality of Pain: reports: aching Severity in ED: reports: mild Onset/Duration: reports: gradual Timing: reports: still present Activities at Onset: reports: light activity Associated Symptoms: reports: nausea, vomiting Bruising or Bleeding Gums?: No Similar Symptoms Previously?: Yes Recently seen or treated by another doctor?: Yes Review of Systems - Adult - REVIEW OF SYSTEMS - ADULT Constitutional: reports: no symptoms reported Eyes: reports: no symptoms reported Ears, Nose, Mouth & Throat: reports: no symptoms reported Cardiovascular: reports: no symptoms reported Respiratory: reports: no symptoms reported Gastrointestinal: reports: see HPI, abdominal pain (epigastric), nausea, vomiting. denies: diarrhea Genitourinary: reports: no symptoms reported Musculoskeletal: reports: no symptoms reported Integumentary: reports: no symptoms reported Neurological: reports: no symptoms reported Psychiatric: reports: no symptoms reported Endocrine: reports: no symptoms reported Hematologic/Lymphatic: reports: no symptoms reported Allergic/Immunologic: reports: no symptoms reported All Other Systems: Reviewed and Negative Past History - Adult - PAST MEDICAL HISTORY-ADULT Review of Records: reports: Old Records Reviewed, Nursing Assessment Review, Medications Reviewed, Social history reviewed & non-contributory. Major Childhood Illnesses: reports: denies history Cardiovascular: reports: CAD, HTN, hyperlipidemia, [place] Respiratory: reports: asthma Gastrointestinal: reports: GERD Obstetrical/Gynecological: reports: denies history Genitourinary: reports: kidney disease, other (Renal Damage) Musculoskeletal: reports: denies history Neurological: reports: denies history Endocrine/Immune: reports: denies history Other Conditions: reports: denies history - PRIOR SURGERIES/PROCEDURES Surgical/Procedure History: reports: cardiac stent, other (lithotripsy) - IMMUNIZATION STATUS Childhood Immunizations: See Nurse Assessment Flu Vaccine: See Nurse Assessment - FAMILY HISTORY Family History: reviewed, not pertinent - SOCIAL HISTORY Smoking: cigarettes (former) Substance Use: denies Physical Exam-General - PHYSICAL EXAM-ADULT Initial Vital Signs Reviewed: Yes - CONSTITUTIONAL General Appearance: alert, no apparent distress. negative: lethargic - HEAD, EARS, NOSE, MOUTH & THROAT HENMT: normocephalic/atraumatic, moist mucous membranes. negative: angioedema - RESPIRATORY Respiratory: chest non-tender, lungs clear, normal breath sounds. negative: wheezing, increased rate - CARDIOVASCULAR Cardiovascular: normal peripheral pulses, regular rate, rhythm. negative: tachycardia - GASTROINTESTINAL (ABDOMEN) Abdominal Exam: normal bowel sounds, soft, tenderness (epigastric). negative: rebound - MUSCULOSKELETAL Extremity: normal inspection. negative: deformity, pedal edema - SKIN Integumentary: normal color, normal turgor, warm/dry. negative: diaphoresis, jaundice - NEUROLOGIC Neurologic: grossly normal. negative: aphasia, facial droop - PSYCHIATRIC Psych/Mental Status: normal mood/affect, oriented x 3. negative: anxious Progress - PLAN OF CARE/RESULTS Progress/Plan/Lab Results: Vital Signs - 8 hr 04/23/19 11:40 04/23/19 14:03 Temperature 98.1 F 98.6 F Pulse Rate 69 74 Respiratory Rate 19 19 Blood Pressure 184/103 184/103 O2 Sat by Pulse Oximetry 96 97 Laboratory Results - last 24 hr 04/23/19 04/23/19 04/23/19 11:49 11:49 11:55 WBC 19.05 H RBC 5.14 Hgb 14.4 Hct 43.3 MCV 84.2 MCH 28.0 MCHC 33.3 RDW Std Deviation 13.3 Plt Count 178 MPV 10.6 H Immature Gran % (Auto) 0.3 Neut % (Auto) 87.4 H Lymph % (Auto) 6.3 L Saline % (Auto) 5.7 Eos % (Auto) 0.2 Baso % (Auto) 0.1 Immature Gran # (Auto) 0.06 H Neut # (Auto) 16.64 H Lymph # (Auto) 1.20 Saline # (Auto) 1.09 H Eos # (Auto) 0.04 Baso # (Auto) 0.02 Segmented Neutrophils 84 H Lymphocytes 10 L Monocytes 5 Metamyelocytes 1.0 Sodium 142 Potassium 4.6 Chloride 107 Carbon Dioxide 13 L Anion Gap 22 BUN 28 H Creatinine 2.7 H Estimated GFR/1.73 m2 24 BUN/Creatinine Ratio 10 Glucose 123 H Calculated Osmolality 290 Calcium 9.1 Total Bilirubin 0.97 AST 20 ALT 19 Alkaline Phosphatase 128 H Total Protein 6.5 Albumin 3.8 Globulin 2.7 Albumin/Globulin Ratio 1.4 Amylase 100 Lipase 52 Urine Source CLEAN CATCH Urine Color YELLOW Urine Turbidity CLEAR Urine pH 6.5 Ur Specific [place] 1.016 Urine Protein 600 A Ur Glucose (Stick) TRACE Ur Ketones (Stick) 20 A Urine Blood SMALL A Urine Nitrite NEGATIVE Urine Bilirubin NEGATIVE Urobilinogen Dipstick NORMAL Urine Leukocytes NEGATIVE Urine WBC (Auto) <10 Urine RBC (Auto) <10 U Epithel Cells (Auto) <10 Urine Bacteria (Auto) NEGATIVE Orders Category Date Time Status Saline Loc DIRECTED Care 04/23/19 11:43 Active NPO Diet 04/23/19 11:[address] ABDOMEN/PELVIS W/O CONTRAST [CT] Stat Exams 04/23/19 14:50 Ordered AMYLASE [CHEM] Stat Lab 04/23/19 11:49 Completed AMYLASE [CHEM] Stat Lab 04/23/19 14:51 Ordered CBC WITH ELECTRONIC DIFF [HEME] Stat Lab 04/23/19 11:49 Completed CBC WITH ELECTRONIC DIFF [HEME] Stat Lab 04/23/19 14:51 Ordered COMPREHENSIVE METABOLIC PANEL [CHEM] Stat Lab 04/23/19 11:49 Completed COMPREHENSIVE METABOLIC PANEL [CHEM] Stat Lab 04/23/19 14:51 Ordered LIPASE [CHEM] Stat Lab 04/23/19 11:49 Completed LIPASE [CHEM] Stat Lab 04/23/19 14:51 Ordered MAGNESIUM [CHEM] Stat Lab 04/23/19 14:51 Ordered URINALYSIS W/POSS RFLX CULT [URINALYSIS] Stat Lab 04/23/19 11:55 Completed URINALYSIS [URINALYSIS] Stat Lab 04/23/19 14:51 Ordered URINE DRUG SCREEN Stat Lab 04/23/19 14:51 Ordered 0.9% Sodium Chloride Inj [Ns] 1,000 ml Med 04/23/19 14:52 Active IV 999 mls/hr Morphine Med 04/23/19 14:52 Discontinued 4 mg IV NOW ONE Result Diagrams: 04/25/19 06:11 04/25/19 06:11 Departure - Departure Date of Disposition Decision: 04/23/19 Time of Disposition Decision: 14:30 DIAGNOSIS: Pancreatitis Disposition: ADMITTED INPATIENT 09 Certified Medical Emergency: Emergent Condition: Stable - Critical Care Note This patient required my direct & personal management of CC.: No Attestation - Physician/ CALVIN Attestation The physician spent face to face time with patient:: Yes Advanced Practice Provider documentation review:: Supervising physician onsite and consulted in the evaluation and care of this patient. The physician did have a face to face encounter with the patient. This chart was documented by the indicated scribe, (Mirta Gonzalez Scribe) and accurately reflects the services I performed and decisions made by me, Jeff Crawford MD, as attested by the provider's signature.
--- NOTE | 2019-05-08 17:15 | DISCHARGE SUMMARY ---
ADMISSION DATE: 04/23/2019 DISCHARGE DATE: 04/25/2019 FINAL DISCHARGE DIAGNOSES: 1. Acute pancreatitis. 2. Chronic kidney disease stage 4. 3. Hypertension. 4. Leukocytosis. 5. Constipation. 6. Coronary artery disease. CONSULTATIONS: Gastrointestinal consultation with Dr. Penny. IMAGING STUDIES: CT of the abdomen and pelvis performed on 04/23/2019 that revealed inflammation around the duodenum and pancreatic head. Highly concerning for pancreatitis and duodenitis. HOSPITAL COURSE: Mr. Zuluaga is a 64-year-old male with a history of chronic kidney disease stage 4 and coronary artery disease, who presented to the ER with a chief complaint of abdominal pain. On admission, a CT of the abdomen and pelvis was done that revealed possible duodenitis and pancreatitis. The patient was admitted to the hospitalist service and placed on bowel rest. He was also noted to be constipated. GI was consulted for further recommendations. The patient was eventually advanced to a clear liquid diet. The patient's abdominal pain and symptoms improved over the course of the hospitalization. The patient continued to improve clinically and was cleared for discharge home. DISCHARGE MEDICATIONS: 1. MiraLAX 17 grams oral twice a day. 2. Colace 100 mg p.o. twice a day. 3. Toprol-XL 50 mg oral daily. 4. Nitrostat 0.4 mg sublingual every 5 minutes p.r.n. for chest pain. 5. Aspirin 81 mg oral daily. 6. [place]-3 fatty acid 1 capsule oral daily. 7. Uloric 80 mg p.o. daily. 8. Vitamin D3 at 1000 units oral daily. 9. Isosorbide mononitrate 60 mg p.o. daily. 10. Brilinta 90 mg oral twice a day. 11. Norvasc 5 mg oral at bedtime. 12. Colcrys 0.6 mg daily p.r.n. DISCHARGE DIET: Low-sodium low-cholesterol diet. ACTIVITY: As tolerated. FOLLOWUP INSTRUCTIONS: The patient will need to follow up with Dr. Baires in 1 to 2 weeks. The patient will also need to follow up with Dr. Penny on 05/16/2019 at 2:30 p.m. cc: Gay Drummond MD
== END 2019-04-25 13:59 | disposition home or self-care (01) ==
LOC: ED 11:25 → SUATTDRO 11:26 → 4N 11:26
PROVIDERS: ATTEND Internal Medicine